=== PATIENT | male | born 1955 | race Caucasian/White ===

== ENCOUNTER → 2020-11-19 | Outpatient (CLI) | payer MEDICARE, OTHER ==
[~2020-11-19] MED LIST: AUGM875T28 PO; IBUPOTC PO
[2020-11-19 12:12] LABS: APPEARANCE, URINE CLEAR (CLEAR); BACTERIA, URINE AUTO NEGATIVE (NEGATIVE); BILIRUBIN, URINE AUTO NEGATIVE (NEGATIVE); BLOOD, URINE BLOOD NEGATIVE (NEGATIVE); COLOR, URINE YELLOW (YELLOW); GLUCOSE, URINE (UA) AUTO NEGATIVE (NEGATIVE); HEMOGLOBIN 15.5 g/dl (13.5-17.5); KETONE, URINE AUTO NEGATIVE (NEGATIVE); LEUKOCYTE ESTERASE, URINE AUTO NEGATIVE (NEGATIVE); MEAN CORPUSCULAR HEMOGLOBIN 31.8 pg (27.0-33.0); MEAN CORPUSCULAR VOLUME 96.3 fl (80.0-96.0); MUCUS, URINE SMALL (NEGATIVE); NITRITE, URINE AUTO NEGATIVE (NEGATIVE); PLATELET COUNT, AUTOMATED 219 10^3/uL (150-450); PROTEIN, URINE AUTO NEGATIVE (NEGATIVE); RBC, URINE AUTO 0 /HPF (0-3); RED BLOOD COUNT 4.88 10^6/uL (4.30-6.10); SPECIFIC GRAVITY URINE AUTO 1.011 (1.002-1.035); SQUAMOUS EPITHELIAL CELL UR AU 0 /HPF (0-6); UROBILINOGEN, URINE AUTO 0.2 mg/dL (0.0-2.0); WBC, URINE AUTO 0 /HPF (0-3); WHITE BLOOD COUNT 6.2 10^3/uL (4.0-10.0)
[2020-11-19 12:29] LABS: HEMOGLOBIN A1c 5.1 %
[2020-11-19 12:44] LABS: ATYPICAL LYMPH 4 % (0-5); BASOPHILS 1 % (0-1); EOSINOPHILS 5 % (0-3); LYMPHOCYTES 27 % (16-44); MONOCYTES 6 % (0-5); NEUTROPHILS 55 % (28-66); PLATELET CLUMPS SMALL AMT; PLATELET ESTIMATE NORMAL (NORMAL)
[2020-11-19 12:45] LABS: ALBUMIN 4.1 GM/DL (3.2-5.2); ALT/SGPT 32 U/L (12-78); BILIRUBIN,TOTAL 0.4 MG/DL (0.2-1.0); BLOOD UREA NITROGEN 16 MG/DL (7-18); CALCIUM LEVEL 9.7 MG/DL (8.8-10.2); CARBON DIOXIDE LEVEL 30 MEQ/L (21-32); CHLORIDE LEVEL 106 MEQ/L (98-107); CHOLESTEROL LEVEL 259 MG/DL (<200); CHOLESTEROL RISK RATIO 4.796 (<5); CREATININE FOR GFR 0.88 MG/DL (0.70-1.30); FERRITIN 371 NG/ML (26-388); FOLATE 19.3 NG/ML; FREE T4 1.01 NG/DL (0.76-1.46); GLOMERULAR FILTRATION RATE > 60.0 (>49); GLUCOSE, FASTING 82 MG/DL (70-100); HDL CHOLESTEROL 54 MG/DL (>40); IRON (FE) 90 UG/DL (65-175); LDL CHOLESTEROL 182 MG/DL (<100); MAGNESIUM LEVEL 2.3 MG/DL (1.8-2.4); NON-HDL-C 205 MG/DL; PERCENT SATURATION 28.7 % (19.7-50.0); POTASSIUM SERUM 4.6 MEQ/L (3.5-5.1); SODIUM LEVEL 141 MEQ/L (136-145); TOTAL 25(OH) VITAMIN D 42.3 NG/ML (30.0-100.0); TOTAL IRON BINDING CAPACITY 314 UG/DL (250-450); TOTAL PROTEIN 7.5 GM/DL (6.4-8.2); TRIGLYCERIDES LEVEL 115 MG/DL (<150); VITAMIN B12 LEVEL 756 PG/ML
[2020-11-19 13:23] LABS: HIV 1&2 SCREEN CENTAUR NEGATIVE (NEGATIVE)
--- NOTE | 2020-11-19 13:52 | REP ---
INDICATION: LOW BACK PAIN HAS LABS 1ST. COMPARISON: None. TECHNIQUE: AP lateral and lateral spot views of the lumbar spine are provided. FINDINGS: Lumbar vertebral body heights are preserved. Alignment is normal. There is no evidence of spondylolysis or spondylolisthesis. There is degenerative disc disease most pronounced at L5-S1 where there is reactive sclerosis. There is degenerative narrowing of the 3 4 and 4 5 discs as well. Discogenic spurring is seen at these disc levels. Discogenic spurring is also noted anteriorly at L2-3. Calcified gallstones are noted in the right upper quadrant and there is heavily calcified normal caliber abdominal aorta. The visualized sacrum and SI joints are unremarkable. The no bony destructive lesion. There is mild facet hypertrophy by bilaterally at L4-5 and L5-S1 IMPRESSION: Degenerative disc disease and osteoarthritic facet changes. Cholelithiasis. Vascular calcification. <Electronically signed by Jm Constantino > 11/19/20 2119
[2020-11-20 16:22] LABS: Lyme Disease IgG/IgM Antibodie <0.91 ISR (0.00-0.90); Lyme Disease IgM Ab Quantitati <0.80 index (0.00-0.79); PSA TOTAL 1.1 ng/mL (0.0-4.0)
== END ==
LOC: M LAB 11:17
PROVIDERS: ATTEND Nurse Practitioner Family
DX: M51.37 Other intervertebral disc degeneration, lumbosacral region (principal); M51.36 Other intervertebral disc degeneration, lumbar region; K80.20 Calculus of gallbladder without cholecystitis without obstruction; Z79.899 Other long term (current) drug therapy

== ENCOUNTER → 2021-03-23 | Outpatient (CLI) | payer MEDICAID, MEDICARE ==
[~2021-03-23] MED LIST changes: +ATOR40TA75 PO; +CILO50TA PO; +MELO15TA28 PO; +OSTE5TAB PO; +TREL1AER INH; +[UNRECOGNIZED DRUG - OTHER] PO
== END ==
LOC: M RAD 12:32
PROVIDERS: ATTEND Nurse Practitioner Family
DX: Z01.812 Encounter for preprocedural laboratory examination (principal); R91.8 Other nonspecific abnormal finding of lung field; F17.210 Nicotine dependence, cigarettes, uncomplicated; Z20.822 Contact with and (suspected) exposure to COVID-19
CPT/HCPCS: 71271; U0003

== ENCOUNTER → 2021-03-23 | Outpatient (CLI) | payer MEDICARE, OTHER | LOC: M LABSMTC 11:08 | PROVIDERS: ATTEND Anesthesiology | DX: Z01.812 Encounter for preprocedural laboratory examination (principal); Z20.822 Contact with and (suspected) exposure to COVID-19 ==

== ENCOUNTER 2021-03-28 10:39 | Day surgery (SDC) | payer MEDICARE, OTHER ==
[~2021-03-28] VITALS: Ht 180.3 cm; Wt 59.4 kg
[~2021-03-28 10:39] MED LIST changes: +NS 1,000 ML IV ONE
[2021-03-28] MEDS ORDERED: VITMTA PO (11:13)
[2021-03-28] MEDS ORDERED: LIDOCAINE 2% 100MG/5ML SDV (FOR ANES.) As Ordered ONE (11:23)
[2021-03-28] MEDS ORDERED: propofoL 500 MG/50 ML VIAL As Ordered ONE (11:23)
[2021-03-28] MEDS ORDERED: fentaNYL 100 MCG/2 ML INJECTION As Ordered ONE (11:23)
[2021-03-28 12:55] VITALS: BP 143/83
== END 2021-03-28 13:12 | disposition home or self-care (01) ==
LOC: M OPP 10:39
PROVIDERS: ATTEND Internal Medicine Gastroenterology
DX: Z12.11 Encounter for screening for malignant neoplasm of colon (principal); K22.9 Disease of esophagus, unspecified; K29.70 Gastritis, unspecified, without bleeding; R10.13 Epigastric pain; Z79.899 Other long term (current) drug therapy; F17.210 Nicotine dependence, cigarettes, uncomplicated
CPT/HCPCS: 43239; 88305; G0121; J3010

== ENCOUNTER → 2021-07-19 | Outpatient (CLI) | payer MEDICARE, MEDICAID ==
[~2021-07-19] MED LIST changes: -NS 1,000 ML IV ONE; +VITMTA PO
== END ==
LOC: M PLAIMG 11:31
PROVIDERS: ATTEND Pediatrics
DX: R91.8 Other nonspecific abnormal finding of lung field (principal); K80.20 Calculus of gallbladder without cholecystitis without obstruction; N28.1 Cyst of kidney, acquired

== ENCOUNTER 2021-07-29 12:10 | Emergency (ER) | payer OTHER, MEDICAID ==
[~2021-07-29] VITALS: Ht 180.3 cm; Wt 60.0 kg
[2021-07-29] MEDS ORDERED: ASPIRIN 81 MG CHEW TABLET PO ONE (12:40)
[2021-07-29] MEDS ORDERED: ASPIRIN 325 MG TAB PO ONE (12:40)
[2021-07-29 13:03] LABS: BASO % 0.4 % (0.0-1.0); EOS # 0.2 10^3/uL (0.0-0.5); EOS % 2.3 % (0.0-3.0); HEMATOCRIT 45.8 % (42.0-52.0); HEMOGLOBIN 15.2 g/dl (13.5-17.5); MEAN CORPUSCULAR HEMOGLOBIN 32.5 pg (27.0-33.0); MEAN CORPUSCULAR HGB CONC 33.2 g/dl (32.0-36.5); MEAN CORPUSCULAR VOLUME 98.1 fl (80.0-96.0); MONO # 0.7 10^3/uL (0.0-0.8); MONO % 7.4 % (2.0-8.0); NEUTROPHILS # 6.8 10^3/uL (1.5-8.5); NEUTROPHILS % 69.5 % (36.0-66.0); PLATELET COUNT, AUTOMATED 202 10^3/uL (150-450); RED BLOOD COUNT 4.67 10^6/uL (4.30-6.10); WHITE BLOOD COUNT 9.8 10^3/uL (4.0-10.0)
[2021-07-29 13:19] LABS: INR 0.86; PROTHROMBIN TIME 12.1 SECONDS (12.7-14.5); VENOUS BASE EXCESS -1.6 (-2.0-2.0); VENOUS HCO3 23.1 MEQ/L (23.0-27.0); VENOUS O2 SATURATION 95.4 % (60.0-80.0); VENOUS PARTIAL PRESSURE CO2 39.2 mmHg (38.0-50.0); VENOUS PARTIAL PRESSURE O2 78.3 mmHg (30.0-50.0); VENOUS PH 7.388 UNITS (7.330-7.430); VENOUS STANDARD HCO3 23.1 MEQ/L; VENOUS TOTAL CO2 24.3 MEQ/L (24.0-28.0)
[2021-07-29 13:20] LABS: PARTIAL THROMBOPLASTIN TIME 27.7 SECONDS (25.9-37.0)
[2021-07-29 13:22] LABS: D-DIMER QUANT 984.7 ng/ml (<500)
[2021-07-29] MEDS ORDERED: ISOVUE-370 76% 100ML VIAL As Ordered ONE (13:30)
[2021-07-29 13:37] LABS: BLOOD UREA NITROGEN 16 MG/DL (7-18); CALCIUM LEVEL 9.3 MG/DL (8.8-10.2); CARBON DIOXIDE LEVEL 26 MEQ/L (21-32); CHLORIDE LEVEL 111 MEQ/L (98-107); CK-MB VALUE MASS 1.9 NG/ML (<3.6); CREATININE FOR GFR 0.98 MG/DL (0.70-1.30); GLOMERULAR FILTRATION RATE > 60.0 (>49); GLUCOSE, FASTING 89 MG/DL (70-100); MB/CK RELATIVE INDEX 1.21 (< OR =4); POTASSIUM SERUM 4.8 MEQ/L (3.5-5.1); SODIUM LEVEL 143 MEQ/L (136-145)
[2021-07-29 13:45] LABS: ALBUMIN 3.7 GM/DL (3.2-5.2); BILIRUBIN,TOTAL 0.5 MG/DL (0.2-1.0); TOTAL PROTEIN 7.1 GM/DL (6.4-8.2)
[2021-07-29 13:46] LABS: BILIRUBIN,DIRECT 0.2 MG/DL (0.0-0.2)
[2021-07-29 15:34] LABS: CK-MB VALUE MASS 2.6 NG/ML (<3.6); MB/CK RELATIVE INDEX 2.6 (< OR =4)
[2021-07-29 16:50] LABS: CK-MB VALUE MASS 2.8 NG/ML (<3.6); MB/CK RELATIVE INDEX 2.92 (< OR =4)
[2021-07-29] MEDS ORDERED: ATORVASTATIN 20 MG TAB PO ONE (18:45)
[2021-07-29 20:00] VITALS: BP 124/81
== END 2021-07-29 20:31 | disposition short-term general hospital (02) ==
LOC: M ED 12:10
DX: I24.8 Other forms of acute ischemic heart disease (principal); R74.8 Abnormal levels of other serum enzymes; R94.31 Abnormal electrocardiogram [ECG] [EKG]; I10 Essential (primary) hypertension; E78.5 Hyperlipidemia, unspecified; J44.9 Chronic obstructive pulmonary disease, unspecified; F17.200 Nicotine dependence, unspecified, uncomplicated; Z79.899 Other long term (current) drug therapy
CPT/HCPCS: 36415; 71045; 71275; 80047; 80048; 80076; 82550; 82553; 82803; 83690; 83880; 84484; 85025; 85379; 85610; 85730; 87486; 87581; 87633; 87798; 93005; 93041; 94760; 99285; Q9967

== ENCOUNTER → 2021-10-05 | Outpatient (CLI) | payer MEDICARE, OTHER | LOC: M RAD 12:20 | PROVIDERS: ATTEND Pediatrics | DX: R91.8 Other nonspecific abnormal finding of lung field (principal) ==

== ENCOUNTER → 2021-12-26 | Outpatient (CLI) | payer MEDICARE, OTHER ==
[~2021-12-26] MED LIST changes: +AMIO200T49 PO; -CILO50TA PO; +CILO50TA2 PO; +CLOP75TA2; +ECOT81TA5 PO; +ENTR1TAB; +ISOVUE-370 76% 100ML VIAL As Ordered ONE; +METO1TAB7; +SPIR-10 PO; +TREL1AER PO
== END ==
LOC: M RAD 08:55
PROVIDERS: ATTEND Specialist
DX: R91.8 Other nonspecific abnormal finding of lung field (principal)
CPT/HCPCS: 71260; Q9967

== ENCOUNTER → 2022-05-17 | Outpatient (REF) | payer OTHER, MEDICAID ==
[~2022-05-17] MED LIST changes: -ISOVUE-370 76% 100ML VIAL As Ordered ONE
[2022-05-17 19:18] LABS: BASO % 0.5 % (0.0-1.0); EOS # 0.2 10^3/uL (0.0-0.5); EOS % 2.7 % (0.0-3.0); HEMATOCRIT 45.3 % (42.0-52.0); HEMOGLOBIN 14.8 g/dl (13.5-17.5); LYMPH % 29.6 % (24.0-44.0); MEAN CORPUSCULAR HEMOGLOBIN 31.6 pg (27.0-33.0); MEAN CORPUSCULAR HGB CONC 32.7 g/dl (32.0-36.5); MEAN CORPUSCULAR VOLUME 96.8 fl (80.0-96.0); MONO # 0.8 10^3/uL (0.0-0.8); MONO % 12.2 % (2.0-8.0); NEUTROPHILS # 3.6 10^3/uL (1.5-8.5); NEUTROPHILS % 54.4 % (36.0-66.0); PLATELET COUNT, AUTOMATED 218 10^3/uL (150-450); RED BLOOD COUNT 4.68 10^6/uL (4.30-6.10); WHITE BLOOD COUNT 6.7 10^3/uL (4.0-10.0)
[2022-05-17 19:43] LABS: ALBUMIN 4.3 G/DL (3.2-5.2); ALKALINE PHOSPHATASE 90 U/L (46-116); ALT/SGPT 51 U/L (7.0-40); AST/SGOT 37 U/L (<34); BILIRUBIN,TOTAL 0.8 MG/DL (0.3-1.2); BLOOD UREA NITROGEN 22 MG/DL (9-23); CALCIUM LEVEL 9.1 MG/DL (8.3-10.6); CARBON DIOXIDE LEVEL 27 MMOL/L (20-31); CHLORIDE LEVEL 104 MMOL/L (98-107); CHOLESTEROL LEVEL 133 MG/DL (<200); CHOLESTEROL RISK RATIO 3.43 (<5); CREATININE FOR GFR 1.15 MG/DL (0.70-1.30); GLOMERULAR FILTRATION RATE > 60.0 (>49); GLUCOSE, FASTING 75 MG/DL (74-106); HDL CHOLESTEROL 38.7 MG/DL (>40); LDL CHOLESTEROL 71.3 MG/DL (<100); NON-HDL-C 94.3 MG/DL; POTASSIUM SERUM 4.3 MMOL/L (3.5-5.1); SODIUM LEVEL 138 MMOL/L (136-145); TOTAL PROTEIN 7.3 G/DL (5.7-8.2); TRIGLYCERIDES LEVEL 115 MG/DL (<150)
[2022-05-17 19:46] LABS: THYROID STIMULATING HORMONE 2.656 uIU/ML (0.55-4.78)
== END ==
LOC: M LAB REF 17:36
PROVIDERS: ATTEND Pediatrics
DX: E78.5 Hyperlipidemia, unspecified (principal); J44.9 Chronic obstructive pulmonary disease, unspecified

== ENCOUNTER → 2023-03-15 | Outpatient (CLI) | payer MEDICARE, OTHER ==
[~2023-03-15] MED LIST changes: +ISOVUE-370 76% 100ML VIAL As Ordered ONE
== END ==
LOC: M RAD 09:54
PROVIDERS: ATTEND Specialist
DX: R91.1 Solitary pulmonary nodule (principal)
CPT/HCPCS: 71260; Q9967

== ENCOUNTER 2023-04-25 08:05 | Inpatient (IN) | payer MEDICARE, OTHER ==
[~2023-04-25 08:05] MED LIST changes: +ACET-683 PO; -CLOP75TA2; +CLOP75TA2 PO; +ENTR1TAB7 PO; -ISOVUE-370 76% 100ML VIAL As Ordered ONE; +JARD1TAB PO; +LIDOCAINE 1% MDV 20ML VIAL As Ordered ONE; -METO1TAB7; +METO1TAB7 PO; +MULT-90 PO
[2023-04-25 08:39] LABS: HEMATOCRIT 46.2 % (42.0-52.0); HEMOGLOBIN 15.3 g/dl (13.5-17.5); MEAN CORPUSCULAR HEMOGLOBIN 32.5 pg (27.0-33.0); MEAN CORPUSCULAR HGB CONC 33.1 g/dl (32.0-36.5); MEAN CORPUSCULAR VOLUME 98.1 fl (80.0-96.0); PLATELET COUNT, AUTOMATED 161 10^3/uL (150-450); RED BLOOD COUNT 4.71 10^6/uL (4.30-6.10); WHITE BLOOD COUNT 6.1 10^3/uL (4.0-10.0)
[2023-04-25] MEDS ORDERED: ATOR80TA59 PO (08:49)
[2023-04-25] MEDS ORDERED: IPRA6SP NARES (08:49)
[2023-04-25] MEDS ORDERED: HOME MED LIST COMPLETE! XX SCH (08:50)
[2023-04-25 09:13] LABS: INR 0.98; PROTHROMBIN TIME 12.7 SECONDS (12.5-14.5)
[2023-04-25] MEDS ORDERED: MIDAZOLAM INJ 2MG/2ML VIAL As Ordered ONE (12:23)
[2023-04-25] MEDS ORDERED: BISACODYL 5MG TAB PO PRN (12:40)
[2023-04-25] MEDS ORDERED: ACETAMINOPHEN 500 MG TAB PO PRN (12:40)
[2023-04-25] MEDS ORDERED: ACETAMINOPHEN TAB 650MG DOSE (2X325MG) PO PRN ×2 (12:40→12:45)
[2023-04-25] MEDS ORDERED: MOM 30ML SUSPENSION UDC PO PRN (12:40)
[2023-04-25] MEDS ORDERED: ONDANSETRON 4MG 2ML VIAL IV PRN (12:40)
[2023-04-25] MEDS ORDERED: SENOKOT S TAB PO PRN (12:40)
[2023-04-25] MEDS ORDERED: PERCOCET 5MG/325MG TAB PO PRN ×3 (12:40→12:45)
[2023-04-25] MEDS ORDERED: LEVALBUTEROL 1.25MG 0.5ML CONCENTRATE NEB NEB PRN (12:45)
[2023-04-25 13:52] LABS: BASO % 0.6 % (0.0-1.0); EOS # 0.2 10^3/uL (0.0-0.5); EOS % 3.5 % (0.0-3.0); HEMATOCRIT 44.1 % (42.0-52.0); HEMOGLOBIN 14.9 g/dl (13.5-17.5); LYMPH # 1.9 10^3/uL (1.5-5.0); LYMPH % 37.8 % (24.0-44.0); MEAN CORPUSCULAR HGB CONC 33.8 g/dl (32.0-36.5); MEAN CORPUSCULAR VOLUME 97.6 fl (80.0-96.0); MONO # 0.6 10^3/uL (0.0-0.8); MONO % 11.6 % (2.0-8.0); NEUTROPHILS # 2.4 10^3/uL (1.5-8.5); NEUTROPHILS % 46.3 % (36.0-66.0); PLATELET COUNT, AUTOMATED 140 10^3/uL (150-450); RED BLOOD COUNT 4.52 10^6/uL (4.30-6.10); WHITE BLOOD COUNT 5.1 10^3/uL (4.0-10.0)
[2023-04-25 14:18] LABS: BLOOD UREA NITROGEN 22 MG/DL (9-23); CALCIUM LEVEL 8.8 MG/DL (8.3-10.6); CARBON DIOXIDE LEVEL 31 MMOL/L (20-31); CHLORIDE LEVEL 107 MMOL/L (98-107); GLOMERULAR FILTRATION RATE > 60.0 (>49); GLUCOSE, FASTING 57 MG/DL (74-106); POTASSIUM SERUM 4.3 MMOL/L (3.5-5.1); SODIUM LEVEL 141 MMOL/L (136-145)
[2023-04-25 14:27] VITALS: BP 130/71; TEMP 97.9; O2SAT 99
[2023-04-25] MEDS: LEVALBUTEROL 1.25MG 0.5ML CONCENTRATE NEB NEB SCH (14:31)
[2023-04-25] MEDS: KETOROLAC 30 MG/ML 1ML VIAL IV SCH (14:39)
[2023-04-25] MEDS: D5W/0.9% SODIUM CHLORIDE 1,000 ML IV SCH (14:40)
[2023-04-25 16:00] VITALS: BP 134/70; TEMP 98; O2SAT 99
[2023-04-25 19:28] VITALS: BP 132/63; TEMP 98.3; O2SAT 100
[2023-04-25] MEDS: ENTRESTO 49-51MG TABLET (SACUBITRIL/VALSARTAN) PO SCH (20:28)
[2023-04-25] MEDS: HEPARIN SOD (PORCINE) 5000UNITS/ML 1ML VIAL/SYRINGE SC SCH (20:29)
[2023-04-25] MEDS: DOCUSATE SODIUM 100MG CAPSULE PO SCH (21:00)
[2023-04-25 21:15] VITALS: O2SAT 99
[2023-04-25 21:16] VITALS: O2SAT 98
[2023-04-26 00:14] VITALS: BP 126/66; TEMP 97.9; O2SAT 92
[2023-04-26 03:33] VITALS: BP 127/70; TEMP 97.9; O2SAT 95
[2023-04-26 05:26] LABS: BASO % 0.4 % (0.0-1.0); EOS # 0.1 10^3/uL (0.0-0.5); HEMOGLOBIN 13.7 g/dl (13.5-17.5); LYMPH # 1.7 10^3/uL (1.5-5.0); LYMPH % 30.9 % (24.0-44.0); MEAN CORPUSCULAR HEMOGLOBIN 32.5 pg (27.0-33.0); MEAN CORPUSCULAR HGB CONC 33.4 g/dl (32.0-36.5); MEAN CORPUSCULAR VOLUME 97.2 fl (80.0-96.0); MONO # 0.5 10^3/uL (0.0-0.8); MONO % 9.3 % (2.0-8.0); NEUTROPHILS # 3.2 10^3/uL (1.5-8.5); PLATELET COUNT, AUTOMATED 124 10^3/uL (150-450); RED BLOOD COUNT 4.22 10^6/uL (4.30-6.10); WHITE BLOOD COUNT 5.6 10^3/uL (4.0-10.0)
[2023-04-26 05:55] LABS: BLOOD UREA NITROGEN 24 MG/DL (9-23); CALCIUM LEVEL 7.8 MG/DL (8.3-10.6); CARBON DIOXIDE LEVEL 26 MMOL/L (20-31); CHLORIDE LEVEL 111 MMOL/L (98-107); CREATININE FOR GFR 1.11 MG/DL (0.70-1.30); GLOMERULAR FILTRATION RATE > 60.0 (>49); GLUCOSE, FASTING 117 MG/DL (74-106); POTASSIUM SERUM 4.1 MMOL/L (3.5-5.1); SODIUM LEVEL 140 MMOL/L (136-145)
[2023-04-26 08:00] VITALS: BP 109/58; TEMP 97.6; O2SAT 100
[2023-04-26] MEDS ORDERED: ASPIRIN 81MG ENTERIC TABLET PO SCH (09:00)
[2023-04-26] MEDS ORDERED: CLOPIDOGREL 75 MG TAB PO SCH (09:00)
[2023-04-26] MEDS: SPIRONOLACTONE 12.5MG PER 1/2 TABLET PO SCH (09:36)
[2023-04-26] MEDS: ATORVASTATIN 20 MG TAB PO SCH (09:37)
[2023-04-26] MEDS: PANTOPRAZOLE 40MG TAB (PROTONIX) PO SCH (09:37)
[2023-04-26] MEDS: METOPROLOL SUCC (TopROL XL) 50MG **XL** TAB PO SCH (09:40)
[2023-04-26 12:00] VITALS: BP 115/57; TEMP 98.9; O2SAT 96
[2023-04-26 16:17] VITALS: BP 117/62; TEMP 97.9; O2SAT 95
[2023-04-26 19:03] VITALS: BP 112/56; TEMP 97.7; O2SAT 92
[2023-04-27 00:26] VITALS: BP 107/63; TEMP 97.4; O2SAT 95
[2023-04-27 03:54] VITALS: BP 115/64; TEMP 97.8; O2SAT 96
[2023-04-27 06:05] LABS: BASO % 0.4 % (0.0-1.0); EOS # 0.2 10^3/uL (0.0-0.5); EOS % 3.6 % (0.0-3.0); HEMOGLOBIN 13.7 g/dl (13.5-17.5); LYMPH # 1.6 10^3/uL (1.5-5.0); LYMPH % 31.1 % (24.0-44.0); MEAN CORPUSCULAR HEMOGLOBIN 32.4 pg (27.0-33.0); MEAN CORPUSCULAR HGB CONC 33.4 g/dl (32.0-36.5); MEAN CORPUSCULAR VOLUME 96.9 fl (80.0-96.0); MONO # 0.4 10^3/uL (0.0-0.8); MONO % 7.4 % (2.0-8.0); NEUTROPHILS % 57.3 % (36.0-66.0); PLATELET COUNT, AUTOMATED 115 10^3/uL (150-450); RED BLOOD COUNT 4.23 10^6/uL (4.30-6.10); WHITE BLOOD COUNT 5.2 10^3/uL (4.0-10.0)
[2023-04-27 06:31] LABS: BLOOD UREA NITROGEN 18 MG/DL (9-23); CALCIUM LEVEL 8.5 MG/DL (8.3-10.6); CARBON DIOXIDE LEVEL 27 MMOL/L (20-31); CHLORIDE LEVEL 110 MMOL/L (98-107); GLOMERULAR FILTRATION RATE > 60.0 (>49); GLUCOSE, FASTING 94 MG/DL (74-106); POTASSIUM SERUM 4.5 MMOL/L (3.5-5.1); SODIUM LEVEL 140 MMOL/L (136-145)
[2023-04-27 09:27] VITALS: BP 118/60
[2023-04-27 12:00] VITALS: BP 122/62; TEMP 97.6; O2SAT 98
[2023-04-27] MEDS ORDERED: ISOVUE-370 76% 100ML VIAL As Ordered ONE (15:15)
[2023-04-27 16:00] VITALS: BP 116/56; TEMP 98; O2SAT 99
== END 2023-04-27 17:12 | disposition home or self-care (01) | DRG 201 ==
LOC: M IRPRO 08:05 → M PCU 12:25
PROVIDERS: ADMIT Internal Medicine; ATTEND General Practice
PROC: 0W9B30Z Drainage of Left Pleural Cavity with Drainage Device, Percutaneous Approach (ICD-10-PCS; 2023-04-25)
PROC: 0BBG3ZX Excision of Left Upper Lung Lobe, Percutaneous Approach, Diagnostic (ICD-10-PCS; principal; 2023-04-25 09:00)
DX: J95.811 Postprocedural pneumothorax (principal); R91.1 Solitary pulmonary nodule; Z95.810 Presence of automatic (implantable) cardiac defibrillator; Z95.1 Presence of aortocoronary bypass graft; I25.10 Atherosclerotic heart disease of native coronary artery without angina pectoris; E78.5 Hyperlipidemia, unspecified; J44.9 Chronic obstructive pulmonary disease, unspecified; I73.9 Peripheral vascular disease, unspecified; I65.22 Occlusion and stenosis of left carotid artery; H66.91 Otitis media, unspecified, right ear; R55 Syncope and collapse; R42 Dizziness and giddiness; Z79.82 Long term (current) use of aspirin; Z79.899 Other long term (current) drug therapy; I25.2 Old myocardial infarction

== ENCOUNTER → 2023-05-03 | Outpatient (CLI) | payer MEDICARE, OTHER ==
[~2023-05-03] MED LIST changes: +ATOR80TA59 PO; +IPRA6SP NARES; -LIDOCAINE 1% MDV 20ML VIAL As Ordered ONE
== END ==
LOC: M LAB 10:05
PROVIDERS: ATTEND Thoracic Surgery (Cardiothoracic Vascular Surgery)
DX: J95.811 Postprocedural pneumothorax (principal)

== ENCOUNTER → 2023-06-18 | Outpatient (CLI) | payer MEDICARE, OTHER ==
[~2023-06-18] MED LIST changes: +ISOVUE-370 76% 100ML VIAL As Ordered ONE
== END ==
LOC: M RAD 09:05
PROVIDERS: ATTEND Specialist
DX: R91.8 Other nonspecific abnormal finding of lung field (principal)
CPT/HCPCS: 71260; Q9967

== ENCOUNTER → 2023-10-08 | Outpatient (REF) | payer MEDICARE, MEDICAID, OTHER ==
[~2023-10-08] MED LIST changes: -ISOVUE-370 76% 100ML VIAL As Ordered ONE
[2023-10-09 12:48] LABS: PSA SCREENING 0.85 NG/ML (< 4.00)
[2023-10-09 12:56] LABS: ALBUMIN 3.8 G/DL (3.2-5.2); ALKALINE PHOSPHATASE 70 U/L (46-116); ALT/SGPT 27 U/L (7.0-40); AST/SGOT 28 U/L (<34); BILIRUBIN,TOTAL 0.6 MG/DL (0.3-1.2); BLOOD UREA NITROGEN 25 MG/DL (9-23); CALCIUM LEVEL 9.3 MG/DL (8.3-10.6); CARBON DIOXIDE LEVEL 27 MMOL/L (20-31); CHLORIDE LEVEL 109 MMOL/L (98-107); CHOLESTEROL LEVEL 137 MG/DL (<200); CHOLESTEROL RISK RATIO 3.22 (<5); GLOMERULAR FILTRATION RATE > 60.0 (>49); GLUCOSE, FASTING 90 MG/DL (74-106); HDL CHOLESTEROL 42.5 MG/DL (>40); LDL CHOLESTEROL 48.7 MG/DL (<100); NON-HDL-C 94.5 MG/DL; POTASSIUM SERUM 5.7 MMOL/L (3.5-5.1); SODIUM LEVEL 139 MMOL/L (136-145); TOTAL PROTEIN 6.8 G/DL (5.7-8.2); TRIGLYCERIDES LEVEL 229 MG/DL (<150)
== END ==
LOC: M LAB REF 11:36
PROVIDERS: ATTEND Pediatrics
DX: E78.5 Hyperlipidemia, unspecified (principal); Z12.5 Encounter for screening for malignant neoplasm of prostate
CPT/HCPCS: 80053; 80061; 84443; G0103

== ENCOUNTER → 2024-06-11 | Outpatient (CLI) | payer MEDICARE, MEDICAID ==
[2024-06-11 11:27] LABS: ALBUMIN 3.5 G/DL (3.2-5.2); BILIRUBIN,TOTAL 0.4 MG/DL (0.3-1.2); CALCIUM LEVEL 9.2 MG/DL (8.3-10.6); CREATININE FOR GFR 1.1 MG/DL (0.70-1.30); GLOMERULAR FILTRATION RATE 72.7 (>49); POTASSIUM SERUM 4.6 MMOL/L (3.5-5.1); TOTAL PROTEIN 6.7 G/DL (5.7-8.2)
== END ==
LOC: M LAB 10:29
PROVIDERS: ATTEND Surgery
DX: I73.9 Peripheral vascular disease, unspecified (principal)

== ENCOUNTER → 2024-06-12 | Outpatient (CLI) | payer MEDICARE, OTHER | LOC: M RAD 12:42 | PROVIDERS: ATTEND Surgery | DX: I70.203 Unspecified atherosclerosis of native arteries of extremities, bilateral legs (principal); K80.20 Calculus of gallbladder without cholecystitis without obstruction ==

== ENCOUNTER → 2024-09-12 | Outpatient (CLI) | payer MEDICARE, MEDICAID ==
[~2024-09-12] MED LIST changes: -AMIO200T49 PO; +AMIO200T54 PO; +ISOVUE-370 76% 100 ML VIAL As Ordered ONE
== END ==
LOC: M RAD 16:56
DX: R91.8 Other nonspecific abnormal finding of lung field (principal)

== ENCOUNTER → 2024-11-03 | Outpatient (CLI) | payer MEDICARE, MEDICAID ==
[~2024-11-03] MED LIST changes: -ISOVUE-370 76% 100 ML VIAL As Ordered ONE
== END ==
LOC: M PLARAD 12:18
PROVIDERS: ATTEND Internal Medicine Medical Oncology
DX: C34.11 Malignant neoplasm of upper lobe, right bronchus or lung (principal)
CPT/HCPCS: 78815; A9552

== ENCOUNTER → 2024-11-28 | Outpatient (REF) | payer MEDICARE | LOC: M LAB REF 16:49 | PROVIDERS: ATTEND Internal Medicine Pulmonary Disease | DX: R91.8 Other nonspecific abnormal finding of lung field (principal) ==

== ENCOUNTER → 2024-11-28 | Outpatient (CLI) | payer MEDICAID, MEDICARE | LOC: M PLAIMG 13:57 | PROVIDERS: ATTEND Specialist | DX: R91.8 Other nonspecific abnormal finding of lung field (principal); J43.9 Emphysema, unspecified ==

== ENCOUNTER → 2024-12-03 | Outpatient (REF) | payer MEDICARE, OTHER | LOC: M LAB REF 13:12 | PROVIDERS: ATTEND Internal Medicine Pulmonary Disease | DX: R91.8 Other nonspecific abnormal finding of lung field (principal) ==

== ENCOUNTER → 2024-12-06 | Outpatient (REF) | payer MEDICARE, OTHER | LOC: M LAB REF 12:45 | PROVIDERS: ATTEND Internal Medicine Pulmonary Disease | DX: R91.8 Other nonspecific abnormal finding of lung field (principal) ==

== ENCOUNTER → 2024-12-31 | Outpatient (POV) | payer MEDICARE, OTHER ==
[~2024-12-31] VITALS: Ht 177.8 cm; Wt 51.8 kg
[2024-12-31 08:11] VITALS: BP 139/72; O2SAT 100
== END ==
LOC: M IRPOV 07:39
PROVIDERS: ATTEND Radiology Diagnostic Radiology
DX: R91.1 Solitary pulmonary nodule (principal); R05.3 Chronic cough; Z95.810 Presence of automatic (implantable) cardiac defibrillator; Z95.1 Presence of aortocoronary bypass graft; Z87.891 Personal history of nicotine dependence; Z79.82 Long term (current) use of aspirin; Z79.51 Long term (current) use of inhaled steroids; Z87.09 Personal history of other diseases of the respiratory system; I25.2 Old myocardial infarction

== ENCOUNTER → 2025-01-26 | Outpatient (CLI) | payer MEDICARE | LOC: M RAD 11:35 | PROVIDERS: ATTEND Surgery | DX: I70.203 Unspecified atherosclerosis of native arteries of extremities, bilateral legs (principal); I65.23 Occlusion and stenosis of bilateral carotid arteries ==